=== PATIENT | female | born 1975 | race African-American/Black ===

== ENCOUNTER 2020-05-14 11:12 | Emergency (ER) | payer MEDICAID ==
[~2020-05-14] VITALS: Ht 167.6 cm; Wt 61.0 kg
[2020-05-14] MEDS ORDERED: ALBUTEROL 6.7GM HFA INHALER ORI ONE (12:15)
[2020-05-14 14:25] VITALS: BP 133/72
== END 2020-05-14 14:35 | disposition home or self-care (01) ==
LOC: ER 11:12
DX: J44.1 Chronic obstructive pulmonary disease with (acute) exacerbation (principal)
CPT/HCPCS: 71045; 93005; 94640; 99283

== ENCOUNTER 2022-03-31 08:36 | Emergency (ER) | payer MEDICAID ==
[~2022-03-31] VITALS: Ht 160 cm; Wt 48.0 kg
[2022-03-31 08:39] VITALS: BP 119/86
[2022-03-31] MEDS ORDERED: ALBU6.7H9 INH (08:58)
[2022-03-31] MEDS ORDERED: P50 PO (08:58)
== END 2022-03-31 09:36 | disposition home or self-care (01) ==
LOC: ER 09:09
DX: J45.901 Unspecified asthma with (acute) exacerbation (principal)
CPT/HCPCS: 99283